=== PATIENT | female | born 1965 | race Caucasian/White ===

== ENCOUNTER 2016-09-18 10:54 | Emergency (ER) | payer BC, OTHER ==
[~2016-09-18] VITALS: Ht 172.7 cm; Wt 70.0 kg
[~2016-09-18 10:54] MED LIST: ADVAI100I PO; ALBU8I INH; AMIT8CAP6 PO; CANA100T PO; ESTR.1T TD; LACTCAP7 PO; PRIL20CA PO; REST30CA PO; ZOCO10TA PO
[2016-09-18 10:56] VITALS: BP 104/51; PULSE 94; RESP 12; TEMP 97.9; O2SAT 98
--- NOTE | 2016-09-18 12:00 | PD ---
HPI Chief Complaint: Abdominal Pain Stated Complaint: GI Time Seen by Provider: 11:59 Travel History International Travel<30 days: No Contact w/Intl Traveler<30days: No Known affected area: No History of Present Illness HPI 51 year old female with PMH of DM, sciatica presents to the ED for evaluation of 3 day history of abdominal pain and nausea. She denies fevers, chills, anorexia, changes in bowel habits, melena or dysuria. Also complains of low back and left hip pain. Endorses occasional tingling in the toes of the right foot. Denies weakness or loss of ROM. Also complains of sinus congestion, sore throat and nonproductive cough. She denies rhinorrhea, ear pain. Straight at home with ibuprofen, Mucinex with no improvement of symptoms. Patient states that she was treated for pancreatitis by her primary care provider approximate 2 weeks ago. She states that her abdominal pain and nausea improve during that time. She thinks that pancreatitis was related to change in her diabetic medications. History Past Surgical History Narrative Surgical lap STEFANI conroy tummy tuck Social History Alcohol Use: No Tobacco Use: No Allergies-Medications (Allergen,Severity, Reaction): Coded Allergies: Erythromycin (Unverified Allergy, Severe, HIVES, 09/18/16) Morphine (Unverified Allergy, Severe, HIVES, AGITATION, 09/18/16) Reglan (Unverified Allergy, Severe, HIVES, AGITATIO , 09/18/16) Zofran (Unverified Allergy, Severe, AGITATION, TRUNK ERYTHEMA, 12/06/14) Uncoded Allergies: SURGICAL TAPE & TEGADERM (Allergy, Unknown, BLISTERS, 08/08/04) Reported Meds & Prescriptions Reported Meds & Active Scripts Active Ibuprofen 600 Mg Tab 600 Mg PO Q8HR PRN Tramadol (Tramadol HCl) 50 Mg Tab 100 Mg PO Q8HR PRN Reported Ibuprofen 800 Mg Tab 800 Mg PO Q6HR PRN Estradiol 2 Mg Tab 2 Mg PO DAILY Ventolin Hfa (Albuterol Sulfate) 8 Gm Aero 1 Puff INH ONCE * SHAKE WELL BEFORE USE * Advair Dis14 Inhalat Fluticasone/Salmeterol 100/50 Inh 1 Puff PO BID Restoril 30 mg (Temazepam) 30 Mg Cap 1 Cap PO HS Review of Systems Except as stated in HPI: all other systems reviewed are Neg Physical Exam Narrative GENERAL: Well-nourished, well-developed nontoxic appearing white female in no acute distress. SKIN: Warm and dry. Well healed abdominal scars without signs of infection. HEAD: Normocephalic. Atraumatic. EYES: No scleral icterus. No injection or drainage. PERRLA. EOMI. ENT: Pearly aguilar tympanic membranes bilaterally. Nasal mucosa is moist. Oropharynx without erythema, edema or exudate. NECK: Supple, trachea midline. No JVD or lymphadenopathy. CARDIOVASCULAR: Regular rate and rhythm without murmurs, gallops, or rubs. 2+ DP and radial pulses bilaterally. RESPIRATORY: Breath sounds clear and equal bilaterally. No accessory muscle use. GASTROINTESTINAL: Abdomen soft, nondistended. + Bowel sounds. TTP in RUQ and epigastric region. MUSCULOSKELETAL: No cyanosis, or edema. The patient is ambulatory, moves easily from standing to sitting positions. 5/5 strength in BLE. Straight leg raise negative bilaterally. BACK: No obvious deformity. No CVA tenderness. TTP of the left piriformis. Data Data Last Documented VS Vital Signs Date Time Temp Pulse Resp B/P Pulse Ox O2 Delivery O2 Flow Rate FiO2 09/18/16 12:06 88 20 92/51 94 Room Air 09/18/16 10:56 97.9 Orders Complete Blood Count With Diff (09/18/16 12:19) Comprehensive Metabolic Panel (09/18/16 12:19) Lipase (09/18/16 12:19) Urinalysis - C+S If Indicated (09/18/16 12:19) Ct Abd/Pel W Iv Contrast(Rout) (09/18/16 12:19) Iv Access Insert/Monitor (09/18/16 12:19) Sodium Chlor 0.9% 1000 Ml Inj (Ns 1000 M (09/18/16 12:19) Blood Glucose (09/18/16 12:19) Influenzae A/B Antigen (09/18/16 12:25) Oral Contrast - Adult (09/18/16 12:30) Diatrizoate Liq ( Gastroview Liq) (09/18/16 12:48) Iohexol 350 Inj (Omnipaque 350 Inj) (09/18/16 14:29) Calcium Carbonate (Oscal) (09/18/16 14:45) Ketorolac Inj (Toradol Inj) (09/18/16 15:00) Labs Laboratory Tests Test 09/18/16 09/18/16 12:45 13:40 White Blood Count 6.7 TH/MM3 Red Blood Count 3.98 MIL/MM3 Hemoglobin 12.4 GM/DL Hematocrit 36.4 % Mean Corpuscular Volume 91.3 FL Mean Corpuscular Hemoglobin 31.1 PG Mean Corpuscular Hemoglobin 34.0 % Concent Red Cell Distribution Width 14.7 % Platelet Count 200 TH/MM3 Mean Platelet Volume 8.5 FL Neutrophils (%) (Auto) 65.8 % Lymphocytes (%) (Auto) 19.7 % Monocytes (%) (Auto) 7.8 % Eosinophils (%) (Auto) 6.3 % Basophils (%) (Auto) 0.4 % Neutrophils # (Auto) 4.4 TH/MM3 Lymphocytes # (Auto) 1.3 TH/MM3 Monocytes # (Auto) 0.5 TH/MM3 Eosinophils # (Auto) 0.4 TH/MM3 Basophils # (Auto) 0.0 TH/MM3 CBC Comment DIFF FINAL Differential Comment Sodium Level 141 MEQ/L Potassium Level 3.8 MEQ/L Chloride Level 111 MEQ/L Carbon Dioxide Level 23.0 MEQ/L Anion Gap 7 MEQ/L Blood Urea Nitrogen 7 MG/DL Creatinine 0.75 MG/DL Estimat Glomerular Filtration 82 ML/MIN Rate Random Glucose 103 MG/DL Calcium Level 8.1 MG/DL Total Bilirubin 0.2 MG/DL Aspartate Amino Transf 46 U/L (AST/SGOT) Alanine Aminotransferase 48 U/L (ALT/SGPT) Alkaline Phosphatase 78 U/L Total Protein 6.3 GM/DL Albumin 3.0 GM/DL Lipase 279 U/L Urine Color YELLOW Urine Turbidity CLEAR Urine pH 5.5 Urine Specific [place] 1.011 Urine Protein NEG mg/dL Urine Glucose (UA) NEG mg/dL Urine Ketones NEG mg/dL Urine Occult Blood NEG Urine Nitrite NEG Urine Bilirubin NEG Urine Urobilinogen LESS THAN 2.0 MG/DL Urine Leukocyte Esterase NEG Urine RBC 1 /hpf Urine WBC 1 /hpf Urine Squamous Epithelial 1 /hpf Cells Urine Bacteria OCC /hpf Urine Mucus FEW /lpf Microscopic Urinalysis Comment CULT NOT INDICATED MDM Medical Decision Making Medical Screen Exam Complete: Yes Emergency Medical Condition: Yes Differential Diagnosis viral syndrome versus influenza versus sciatica versus low back pain versus cholecystitis versus pancreatitis versus other Narrative Course 51 year old female with PMH of DM, sciatica presents to the ED for evaluation of 3 day history of abdominal pain and nausea, low back pain, right hip pain, sinus congestion, sore throat, nonproductive cough. She denies fevers, chills, anorexia, changes in bowel habits, melena or dysuria. Denies weakness or loss of ROM. She denies rhinorrhea, ear pain. Patient states she was treated for pancreatitis by her primary care proximal in 2 weeks ago and that was related to changes in her diabetic medications. Vitals reviewed. Physical exam reveals right upper quadrant tenderness, midline tenderness of the back and piriformis muscle. Right leg raise negative. Patient was administered a liter of IV fluids. CBC: WBC 6.7. Hemoglobin 12.4. CMP: Mild elevation of the AST. Calcium 8.1 No indication for culture of the UA. Influenza swab negative. CT abdomen and pelvis without acute findings per radiology read. Patient was administered IM Toradol, by mouth calcium supplement. I discussed the patient with Dr. Arroyo. At this time we feel it safe to discharge the patient with follow-up by neurology. I discussed the results of the workup with the patient. I recommended that she return to normal, gentle activity as tolerated, follow up with her primary care provider and her neurologist. She is provided a brief course of ibuprofen and tramadol. The patient indicated understanding of these instructions and is amenable to this plan of care. She is stable and discharged home. Diagnosis Primary Impression: Low back pain Qualified Code: M54.41 - Acute right-sided low back pain with right-sided sciatica Additional Impression: Viral syndrome Referrals: Neurologist Patient Instructions: General Instructions, Sciatica (ED), Viral Syndrome (ED) Additional Instructions: Rest, hydrate. A mixture of rest and activity is best for back pain. Return to normal, gentle activities as tolerated. Tramadol as needed for pain 6-10 on pain scale. 600 mg ibuprofen up to 3 times a day as needed for pain 1-5. Follow up with the neurologist as discussed. Continue symptomatic treatment for your cold symptoms. Return to the ED for any urgent or emergent medical condition. Med/Other Pt SpecificInfo: Prescription(s) given Scripts Ibuprofen 600 Mg [id number] Mg PO Q8HR PRN (PAIN SCALE 1 TO 5) #15 TAB Ref 0 Prov:Tate Arroyo MD 09/18/16 Tramadol 50 Mg [id number] Mg PO Q8HR PRN (PAIN SCALE 6 TO 10) #12 TAB Ref 0 Prov:Tate Arroyo MD 09/18/16 Disposition: 01 DISCHARGE HOME Condition: Stable Brittani He Sep 18, 2016 12:00
[2016-09-18 12:06] VITALS: BP 92/51; PULSE 88; RESP 20; O2SAT 94
[2016-09-18] MEDS ORDERED: SODIUM CHLOR 0.9% 1000 ML INJ 1,000 ML IV SCH (12:19)
[2016-09-18] MEDS ORDERED: IBUP800T23 PO (12:30)
[2016-09-18] MEDS ORDERED: ESTR2TAB PO (12:30)
[2016-09-18] MEDS ORDERED: DIATRIZOATE MEGLUM/DIATRIZOATE SOD 9 ML CUP ONE (12:48)
[2016-09-18 12:52] LABS: AUTOMATED NEUTROPHIL # 4.4 TH/MM3 (1.8-7.7); BASOPHIL % 0.4 % (0.0-2.0); EOSINOPHIL # 0.4 TH/MM3 (0-0.4); EOSINOPHIL % 6.3 % (0.0-4.0); HEMATOCRIT 36.4 % (35.0-46.0); HEMO FLAGS DIFF FINAL; LYMPH % 19.7 % (9.0-44.0); LYMPHOCYTE # 1.3 TH/MM3 (1.0-4.8); MEAN CELL VOLUME 91.3 FL (80.0-100.0); MEAN CORPUSCULAR HEMOGLOBIN 31.1 PG (27.0-34.0); MONO % 7.8 % (0.0-8.0); NEUT % 65.8 % (16.0-70.0); PLATELET COUNT 200 TH/MM3 (150-450); RED BLOOD COUNT 3.98 MIL/MM3 (4.00-5.30); RED CELL DISTRIBUTION WIDTH 14.7 % (11.6-17.2); WHITE BLOOD COUNT 6.7 TH/MM3 (4.0-11.0)
[2016-09-18 13:15] LABS: ALKALINE PHOSPHATASE 78 U/L (45-117); TOTAL BILIRUBIN ADULT 0.2 MG/DL (0.2-1.0)
[2016-09-18 13:18] LABS: ALT (GPT) 48 U/L (10-53); ANION GAP 7 MEQ/L (5-15); AST (GOT) 46 U/L (15-37); BLOOD UREA NITROGEN 7 MG/DL (7-18); CHLORIDE 111 MEQ/L (98-107); GLOMERULAR FILTRATION RATE 82 ML/MIN (>89); POTASSIUM 3.8 MEQ/L (3.5-5.1); SODIUM (NA) 141 MEQ/L (136-145)
[2016-09-18 14:03] LABS: BACTERIA, URINE OCC /hpf; BLOOD, URINE NEG (NEG); GLUCOSE,URINE NEG (NEG); KETONE, URINE NEG (NEG); MUCUS URINE FEW /lpf (OCC); NITRITE,URINE NEG (NEG); PH, URINE 5.5 (5.0-8.5); SQUAMOUS EPITHELIAL CELL URINE 1 /hpf (0-5); URINE COLOR YELLOW (YELLW/STRAW)
[2016-09-18 14:09] LABS: COMMENT (UR) CULT NOT INDICATED; CULTURE IF INDICATED CULT NOT INDICATED
[2016-09-18] MEDS ORDERED: IOHEXOL 350 MG/ML 10 ML VIAL (for RAD DIAG) IV ONE (14:29)
[2016-09-18] MEDS ORDERED: CALCIUM CARBONATE 1.25 GM (CA 500 MG) TAB PO ONE (14:45)
--- NOTE | 2016-09-18 14:53 | RADRPT ---
EXAM DATE/TIME: 09/18/2016 14:18 [facility] COMPARISON: No previous studies available for comparison. INDICATIONS : Severe abdomen pain for three days,pain right side. IV CONTRAST: 95 cc Omnipaque 350 (iohexol) IV ORAL CONTRAST: Prescribed oral contrast ingested. RADIATION DOSE: 9.04 CTDIvol (mGy) MEDICAL HISTORY : Cardiovascular disease. Pancreatitis. Diabetes SURGICAL HISTORY : Appendectomy. Cholecystectomy.Hysterectomy. ENCOUNTER: Initial ACUITY: 3 days PAIN SCALE: 10/10 LOCATION: Abdomen TECHNIQUE: Volumetric scanning of the abdomen and pelvis was performed. Using automated exposure control and ad justment of the mA and/or kV according to patient size, radiation dose was kept as low as reasonably achievable to obtain optimal diagnostic quality images. FINDINGS: There is minimal dependent atelectasis in the lungs. No acute findings in the liver, spleen, adrenals , kidneys or pancreas. Mild fatty liver. Previous cholecystectomy. No bowel obstruction, free fluid o r free air. No acute bony abnormalities. Postoperative breast augmentation. CONCLUSION: 1. Minimal dependent atelectasis in the lungs. Mild fatty liver. Postoperative cholecystectomy. No ac janette findings within the abdomen and pelvis. Specifically no obstruction, free fluid or free air. No h ydronephrosis. Thomas Fishman MD on September 18, 2016 at 14:44 Board Certified Radiologist. This report was verified electronically.
[2016-09-18] MEDS ORDERED: KETOROLAC TROMETHAMINE 60 MG/2 ML (IM) VIAL IM ONE (15:00)
[2016-09-18] MEDS ORDERED: TRAM50TA PO (15:16)
[2016-09-18] MEDS ORDERED: IBUP-232 PO (15:16)
== END 2016-09-18 15:48 | disposition home or self-care (01) ==
LOC: NETRI 10:54
DX: M54.41 Lumbago with sciatica, right side (principal); B34.9 Viral infection, unspecified
CPT/HCPCS: 74177; 80053; 81001; 83690; 85025; 87804; 96372; 99284; J1885; J7030; Q9963; Q9967

== ENCOUNTER 2018-08-29 11:58 | Observation (INO) ==
[2018-08-29] MEDS ORDERED: Metoprolol Tartrate 25 MG Tablet PO ONE (12:49)
[2018-08-29] MEDS ORDERED: Chlorhexidine Gluconate 2% 1 Pack (2 Cloths) TOPICAL ONE (12:49)
[2018-08-29] MEDS ORDERED: Sodium Chlor 0.9% Inj 500 ML IV.SIG SCH (13:00)
[2018-08-29 13:23] LABS: Baso % (Auto) 0.4 % (0.0-2.0); Eos # (Auto) 0.2 th/mm3 (0.0-0.4); Eos % (Auto) 2.8 % (0.0-4.0); Hematocrit 43.9 % (35.0-46.0); Lymph # (Auto) 2.2 th/mm3 (1.0-4.8); Lymph % (Auto) 31.2 % (9.0-44.0); Mean Corpuscular HGB Conc 34.1 % (32.0-36.0); Mean Corpuscular Hemoglobin 31.4 pg (27.0-34.0); Mean Corpuscular Volume 91.9 fL (80.0-100.0); Mean Platelet Volume 8.5 fL (7.0-11.0); Mono # (Auto) 0.5 th/mm3 (0.0-0.9); Neut # (Auto) 4.1 th/mm3 (1.8-7.7); Neut % (Auto) 58.6 % (16.0-70.0); Platelet Count 236 th/mm3 (150-450); Red Blood Count 4.77 mil/mm3 (4.00-5.30); Red Cell Distribution Width 14.7 % (11.6-17.2)
[2018-08-29] MEDS ORDERED: Sugammadex Inj 200 MG/2 ML Vial IV.PUSH ONE (15:31)
[2018-08-29] MEDS ORDERED: Bupivacaine Liposomal PF 1.3% Inj 20 ML Vial ONE (15:37)
[2018-08-29] MEDS ORDERED: Bupivacaine/Epinephrine Inj 0.25% 50 ML Vial ONE (15:38)
[2018-08-29] MEDS ORDERED: HYDROmorphone PF Inj 2 MG/ML Vial ONE (15:48)
[2018-08-29] MEDS ORDERED: RESP: Albuterol Concentrated 2.5 MG/0.5 ML Neb ONE ×2 (16:11)
[2018-08-29] MEDS ORDERED: ceFAZolin 2 GM Premix Inj 2 GM/50 ML PIGGYBACK IV.SIG ONE (16:35)
[2018-08-29] MEDS ORDERED: Bupivacaine Liposomal PF 1.3% Inj 20 ML Vial INFILTRATN ONE (16:36)
[2018-08-29] MEDS ORDERED: fentaNYL Citrate Inj 100 MCG/2 ML Ampul ONE (17:07)
[2018-08-29] MEDS ORDERED: *Meperidine Inj 25 MG/ML Vial PERIprocedural Use ONLY ONE (17:17)
[2018-08-29] MEDS ORDERED: diphenhydrAMINE HCl 50 MG/ML VIAL IV.PUSH ONE (17:17)
[2018-08-29] MEDS ORDERED: HYDROmorphone PCA Inj 6 MG/30 ML PCA.VIAL PCA ONE (17:17)
[2018-08-29] MEDS ORDERED: oxyCODONE/Acetaminophen 10/325 Tablet PO PRN (18:44)
[2018-08-29] MEDS ORDERED: Naloxone Inj 0.4 MG/ML Vial IV.PUSH PRN (18:48)
[2018-08-29] MEDS ORDERED: HYDROmorphone PCA Inj 6 MG/30 ML PCA.VIAL PCA PRN (19:00)
--- NOTE | 2018-08-29 19:32 | MP ---
cc: Artemio Ramirez MD, Adel MD DATE OF OPERATION: 08/29/2018 PREOPERATIVE DIAGNOSES: 1. Severe anal pain. 2. Internal and external hemorrhoids. POSTOPERATIVE DIAGNOSES: 1. Severe anal pain. 2. Internal and external hemorrhoids. PROCEDURE PERFORMED: 1. Three-quadrant internal and external hemorrhoidectomy. 2. Rigid sigmoidoscopy. ANESTHESIA: General endotracheal. SURGEON: Artemio Ramirez MD ESTIMATED BLOOD LOSS: Minimal. OPERATIVE FINDINGS: This patient was seen in the office with an undue amount of rectal and anal pain. She could barely be examined with just simple digital exam and anoscopy could not be performed, nor sigmoidoscopy. She has had previous colonoscopies, the last one being about a year ago that was normal. She says that she has large hemorrhoids that prolapse when she moves her bowels. At surgery, she was found to have large internal and external hemorrhoids in really the 4 quadrants, but the right posterior was the largest. The left anterior was the moderate size one and the smallest one was the left posterior. A 3-quadrant internal and external hemorrhoidectomy was done. OPERATIVE TECHNIQUE: The patient was placed on the table in the prone position. After adequate general endotracheal anesthesia, the area was prepped and draped in the usual manner. The anal canal was injected with 35cc of .25% Marcaine and 20cc ofExparel was injectedat the end of the proceedure. The rigid sigmoidoscope was used and a rigid sigmoidoscopy was done to about 20 cm. It was limited at that level due to some stool, but there was no evidence of any proctitis or colitis. Next, the Fansler operating anoscope was placed in the anal canal. My attention was turned to the right posterior hemorrhoid. An elliptical incision was made and then the hemorrhoid was excised from the anal muscles, protecting the muscles at all times. The wound was closed from the apex outward using a 2-0 chromic suture in a simple running manner, fully closing the wound. Next, my attention was turned to the left anterior hemorrhoid, again elliptically incised and then excised from the anal muscles, protecting the muscles, and then closing the wound from the apex outward using a 2-0 chromic suture in simple running manner. Once this was done, my attention was turned to the left posterior. The full size Fansler operating anoscope was still able to be placed in the anal canal. An elliptical incision was made and the smaller hemorrhoid was excised externally and internally. Next, the Hill-Lord retractor was inserted and the remainder of the hemorrhoidal tissue was excised from the anal muscles, protecting the muscles. The wound was closed from the apex outward using a 2-0 chromic suture in a simple running manner. At the end of the procedure, hemostasis was excellent. Sponge, needle and instrument counts were reported as correct. The estimated blood loss was minimal. The patient tolerated the procedure well and left the operating room in good condition. MD DANNY Cardoza/luz , 04:58 PM , 05:07 PM [facility]
[2018-08-29] MEDS ORDERED: Estradiol 1 MG Tablet PO SCH (21:45)
[2018-08-29] MEDS ORDERED: Temazepam 15 MG Capsule PO SCH (21:45)
[2018-08-30 00:43] VITALS: RESP 18; TEMP 98
[2018-08-30 04:58] VITALS: BP 108/57; PULSE 69; O2SAT 97
[2018-08-30] MEDS ORDERED: Estradiol 1 MG Tablet PO SCH (09:00)
--- NOTE | 2018-08-30 10:32 | P.PNCS ---
Subjective Colorectal Surgery Post Op Day #: 1 Interval history: afebrile, VSS UO good liq stool, some BRB Objective Result Diagrams: 08/29/18 12:40 Objective Remarks: PE alert Abd - soft, min tympany Rectal - dry Assessment and Plan - Plan Imp: stable post-op OOB dcer IVF Dc plans
--- NOTE | 2018-08-30 10:32 | ECG ---
Date Performed: 08/29/2018 Time Performed: 12:34:41 PTAGE: 52 years EKG: Sinus rhythm NORMAL ECG NO PREVIOUS TRACING DOCTOR: Raul Hu Interpretating Date/Time 08/30/2018 10:28:45
[2018-08-30] MEDS ORDERED: Temazepam 15 MG Capsule PO SCH (21:00)
== END 2018-08-30 11:28 | disposition home or self-care (01) ==
LOC: HSDI 11:58 → HSDC 11:58 → N07 18:13
PROVIDERS: ADMIT Colon & Rectal Surgery; ATTEND Colon & Rectal Surgery